=== PATIENT | female | born 1975 | race Caucasian/White ===

== ENCOUNTER 2023-04-21 10:06 | Inpatient (IN) | payer OTHER ==
[~2023-04-21] VITALS: Ht 165.1 cm; Wt 66.0 kg
[2023-04-21 10:15] VITALS: BP 122/78
[2023-04-21 11:02] LABS: BILIRUBIN Negative (Negative); BLOOD Negative (Negative); CLARITY Clear (Clear); COLOR Yellow (Yellow); GLUCOSE Negative (Negative); KETONE Negative (Negative); LEUKO ESTERASE Trace (Negative); NITRITE Negative (Negative); PH 7.5 (4.5-8.0)
[2023-04-21 11:06] LABS: BASO % 0.2 % (0.0-1.0); EOS % 0.2 % (1.0-4.0); HEMATOCRIT 47.7 % (37.0-47.0); LYMPH # 1.2 10*3/uL (1.3-4.4); LYMPH % 14.5 % (27.0-41.0); MEAN CELL VOLUME 94.5 fl (81.0-99.0); MEAN CORPUSCULAR HGB 29.9 pg (27.0-31.0); MEAN CORPUSCULAR HGB CONC 31.7 g/dl (33.0-37.0); MEAN PLATELET VOLUME 9.3 fl (9.6-12.3); MONO # 0.6 10*3/uL (0.1-1.0); MONO % 6.6 % (3.0-9.0); NEUT # 6.5 10*3/uL (2.3-7.9); NEUT % 78.3 % (47.0-73.0); PLATELET COUNT AUTOMATED 211 10*3/uL (130-400); RED BLOOD COUNT 5.05 10*6/uL (4.10-5.10); RED CELL DISTRI WIDTH 13.8 % (0-14.5); WHITE BLOOD COUNT 8.3 10*3/uL (4.8-10.8)
[2023-04-21 11:09] LABS: BACTERIA 1+; WBC 0-2 wbc/hpf (0-5)
[2023-04-21 11:10] LABS: FINE GRANULAR CAST 0-2
[2023-04-21 11:11] LABS: URINE AMPHETAMINES Negative (1000ng/ml); URINE BARBITURATES Negative (200ng/ml); URINE BENZODIAZEPINES Negative (200ng/ml); URINE CANNABINOIDS (THC) Negative (50ng/ml); URINE COCAINE Negative (300ng/ml); URINE METHADONE Negative (300ng/ml); URINE OPIATES Negative (300ng/ml); URINE PHENCYCLIDINE Negative (25ng/ml)
[2023-04-21 11:17] LABS: ACT PARTIAL THROMBO TIME 26.8 SECONDS (20.0-32.1); INTERNATIONAL NORM RATIO 1.1 (2.0-3.5)
[2023-04-21 11:35] LABS: ALKALINE PHOSPHATASE 70 U/L (46-116); BUN 7 mg/dl (9-23); CHLORIDE 104 mmol/L (98-107); LIPASE 33 U/L (12-53); POTASSIUM 4.3 mmol/L (3.4-5.1); TOTAL PROTEIN 7.4 gm/dL (6.0-8.0)
[2023-04-21 11:36] LABS: BETA-HCG, QUANT < 3.0 mIU/mL (3-10); SGPT/ALT < 7 U/L (10-49)
[2023-04-21 18:10] VITALS: BP 121/82
[2023-04-21 20:00] VITALS: BP 149/92
[2023-04-21 20:15] VITALS: BP 149/92
[2023-04-22] VITALS: BP 126/91
[2023-04-22 06:18] LABS: BASO % 0.1 % (0.0-1.0); EOS # 0.1 10*3/uL (0.0-0.4); EOS % 0.7 % (1.0-4.0); HEMATOCRIT 45.8 % (37.0-47.0); LYMPH # 1.4 10*3/uL (1.3-4.4); LYMPH % 18.5 % (27.0-41.0); MEAN CORPUSCULAR HGB 29.8 pg (27.0-31.0); MEAN CORPUSCULAR HGB CONC 33.6 g/dl (33.0-37.0); MEAN PLATELET VOLUME 9.6 fl (9.6-12.3); MONO # 0.6 10*3/uL (0.1-1.0); MONO % 8.2 % (3.0-9.0); NEUT # 5.3 10*3/uL (2.3-7.9); NEUT % 72.4 % (47.0-73.0); PLATELET COUNT AUTOMATED 229 10*3/uL (130-400); RED BLOOD COUNT 5.16 10*6/uL (4.10-5.10); RED CELL DISTRI WIDTH 13.3 % (0-14.5); WHITE BLOOD COUNT 7.3 10*3/uL (4.8-10.8)
[2023-04-22 06:32] LABS: BUN 9 mg/dl (9-23); CHLORIDE 104 mmol/L (98-107); CHOLESTEROL 161 mg/dL (<200); FREE T4 1.18 ng/dl (0.89-1.76); LDL CHOLESTEROL 79 mg/dL (9-159); POTASSIUM 3.9 mmol/L (3.4-5.1); TRIGLYCERIDES 57 mg/dl (<150)
[2023-04-22 06:52] LABS: MEAN CELL VOLUME 88.8 fl (81.0-99.0)
[2023-04-22 08:00] VITALS: BP 120/80
[2023-04-22 12:00] VITALS: BP 111/90
[2023-04-22 15:17] VITALS: BP 135/85
[2023-04-22 20:00] VITALS: BP 121/85
[2023-04-23] VITALS: BP 139/83
[2023-04-23 08:00] VITALS: BP 119/73
[2023-04-23 12:00] VITALS: BP 116/85
[2023-04-23 16:00] VITALS: BP 131/86
[2023-04-23 20:00] VITALS: BP 121/74
[2023-04-24] VITALS: BP 131/90
[2023-04-24 06:10] VITALS: BP 84/56
[2023-04-24 06:42] LABS: BASO % 0.3 % (0.0-1.0); EOS # 0.1 10*3/uL (0.0-0.4); EOS % 1.5 % (1.0-4.0); HEMATOCRIT 52.7 % (37.0-47.0); LYMPH # 2.1 10*3/uL (1.3-4.4); LYMPH % 33.8 % (27.0-41.0); MEAN CELL VOLUME 91.2 fl (81.0-99.0); MEAN CORPUSCULAR HGB 29.9 pg (27.0-31.0); MEAN CORPUSCULAR HGB CONC 32.8 g/dl (33.0-37.0); MEAN PLATELET VOLUME 9.4 fl (9.6-12.3); MONO # 0.7 10*3/uL (0.1-1.0); MONO % 11.1 % (3.0-9.0); NEUT # 3.2 10*3/uL (2.3-7.9); PLATELET COUNT AUTOMATED 222 10*3/uL (130-400); RED BLOOD COUNT 5.78 10*6/uL (4.10-5.10); RED CELL DISTRI WIDTH 13.8 % (0-14.5); WHITE BLOOD COUNT 6.1 10*3/uL (4.8-10.8)
[2023-04-24 07:10] LABS: BUN 12 mg/dl (9-23); CHLORIDE 103 mmol/L (98-107); POTASSIUM 4.7 mmol/L (3.4-5.1)
[2023-04-24 08:00] VITALS: BP 113/76
[2023-04-24] MEDS ORDERED: VISTARIL50 MG PO (10:57)
[2023-04-24] MEDS ORDERED: METHOCARBAMOL750 M1 PO (10:57)
[2023-04-24] MEDS ORDERED: VITAMIN D350 MCG PO (11:01)
== END 2023-04-24 11:27 | disposition home or self-care (01) | DRG 773 ==
LOC: ED 10:06 → EDHOLD 10:54 → 4E 10:54 → EDHOLD 13:34 → 4E 18:31
PROVIDERS: Emergency Medicine; Student in an Organized Health Care Education/Training Program; ADMIT Internal Medicine; ATTEND Internal Medicine
DX: F11.23 Opioid dependence with withdrawal (principal); F12.20 Cannabis dependence, uncomplicated; R82.71 Bacteriuria; F17.210 Nicotine dependence, cigarettes, uncomplicated; Z71.6 Tobacco abuse counseling